=== PATIENT | female | born 1940 | race Caucasian/White ===

== ENCOUNTER 2017-07-29 06:32 | Day surgery (SDC) | payer MEDICARE ==
[2017-07-29 07:05] VITALS: BMI 23.3
[2017-07-29 07:40] LABS: BASO % 0.9 % (0.0-2.0); EOS # 0.1 K/uL (0.0-0.7); EOS % 2.4 % (0.0-4.0); HEMOGLOBIN 14.1 g/dL (11.0-16.0); LYMPH # 1.3 K/uL (1.0-4.3); LYMPH % 41.1 % (20.0-40.0); MEAN CELL VOLUME 90.8 fL (81.0-99.0); MEAN CORPUSCULAR HEMOGLOBIN 30.7 pg (27.0-31.0); MEAN CORPUSCULAR HGB CONC 33.8 g/dL (33.0-37.0); MONO # 0.3 K/uL (0.0-0.8); MONO % 7.8 % (0.0-10.0); NEUT # 1.6 K/uL (1.8-7.0); NEUT % 47.8 % (50.0-75.0); RBC 4.59 Mil/uL (3.80-5.20); RED CELL DISTRIBUTION WIDTH 13.5 % (11.5-14.5); WHITE BLOOD COUNT 3.2 K/uL (4.8-10.8)
[2017-07-29 07:47] LABS: INR 0.9
[2017-07-29 08:05] LABS: BLOOD UREA NITROGEN 17 mg/dL (7-17); CALCIUM 9.9 mg/dl (8.6-10.4); GFR AFRICAN-AMERICAN > 60; GFR NON-AFRICAN AMERICAN > 60
[2017-07-29] MEDS ORDERED: Verapamil 2 ML ONE (09:12)
[2017-07-29] MEDS ORDERED: Nitroglycerin 50mg in D5W 50 MG/250 ML BOTTLE IV ONE (09:14)
[2017-07-29] MEDS ORDERED: Iohexol 350mg/ml 100 ML ONE (09:14)
[2017-07-29] MEDS ORDERED: Lidocaine 4% (Laryng-O-Jet) Kit MM ONE (09:20)
[2017-07-29] MEDS ORDERED: Midazolam 2 MG/2 ML VIAL ONE (09:23)
[2017-07-29] MEDS ORDERED: Sodium Chloride 0.9% 1,000 ML IV SCH (10:00)
[2017-07-29 16:01] VITALS: RESP 14; O2SAT 100
--- NOTE | 2017-07-31 22:33 | CARDCATH ---
PROCEDURE DATE: 07/29/2017 PROCEDURES: 1. Left heart catheterization. 2. Coronary angiogram. REFERRING PHYSICIAN: Jonathan Gonzalez MD PERFORMING PHYSICIAN: Ivan Aleman MD CLINICAL INDICATIONS: 1. Abnormal stress test. 2. Angina. 3. Diabetes. 4. Hypertension. PROCEDURE: After informed consent, the patient was prepped and draped in the usual sterile fashion. A 2% lidocaine was given in the right wrist for local anesthesia. Using micropuncture technique, a 6-Canadian sheath was introduced into the right radial artery. A 6-Canadian JR4 diagnostic catheter crossed into the left ventricle across the aortic valve. LV end-diastolic pressure was measured. Contrast injected and LV angiogram was done. The catheter was pulled back into the aorta. Gradient across the aortic valve was measured. Then the same catheter was engaged into the right coronary artery. Contrast injected and right coronary angiogram was performed. A 6-Canadian [place] catheter was engaged into the left main coronary artery. Contrast was injected and the coronary angiogram was performed. The patient tolerated the procedure well. Post procedure, Terumo radial band applied to right wrist with excellent hemostasis. FINDINGS: 1. Left main coronary artery is patent. 2. LAD and diagonal branches are patent. 3. Left circumflex and obtuse marginal branches are patent. 4. Right coronary artery is dominant and patent. 5. LV ejection fraction is approximately 65%. No wall motion abnormalities are noted. EDP is 18. No gradient across the aortic valve. IMPRESSION: 1. Normal coronaries. 2. Normal left ventricular function. Recommend medical management. Ivan Aleman MD
== END 2017-07-29 14:25 | disposition home or self-care (01) ==
LOC: C.CATHLAB 06:32
PROVIDERS: ATTEND Internal Medicine Cardiovascular Disease
DX: I10 Essential (primary) hypertension (principal); E11.9 Type 2 diabetes mellitus without complications; I20.9 Angina pectoris, unspecified
CPT/HCPCS: 36415; 80048; 82948; 85025; 85610; 85730; 93452; 94770; 99152; 99153; C1769; C1887; C1893; J1644; J2250; J3010; J7040; Q9967